=== PATIENT | female | born 1995 | race Two or more races ===

== ENCOUNTER 2024-09-23 13:45 | Inpatient (IN) | payer OTHER ==
[~2024-09-23] VITALS: Ht 154.9 cm; Wt 84.8 kg
[2024-10-06 03:04] VITALS: BP 127/82
[2024-10-06] MEDS ORDERED: ZATEAN-PN DHA1 EACH PO (03:16)
[2024-10-06] MEDS ORDERED: RINGERS SOLUTION,LACTATED 1,000 ML IV SCH (04:00)
[2024-10-06 04:05] LABS: HEMATOCRIT 42.3 % (36.0-45.00); HEMOGLOBIN 14.5 g/dL (12.0-15.00); MEAN CELL VOLUME 90.4 fL (80.00-100.00); MEAN CORPUSCULAR HEMOGLOBIN 30.9 pg (27.00-32.0); MEAN CORPUSCULAR HGB CONC 34.1 g/dl (32.0-36.0); PLATELET COUNT 263 K/uL (150-450); RED BLOOD COUNT 4.68 M/uL (4.00-6.00); RED CELL DISTRIBUTION WIDTH 13.8 % (11.5-14.5)
[2024-10-06 04:25] LABS: BILIRUBIN TOTAL 0.52 mg/dL (0.3-1.2); CALCIUM 9.6 mg/dL (8.5-10.1); CREATININE SERUM 0.58 mg/dL (0.55-1.02); GFR 122.06; GLOBULINA 3.9 G/DL (2.4-3.5); POTASSIUM 4.29 mEq/L (3.5-5.1); TOTAL PROTEIN 6.9 gm/dL (6.4-8.2)
[2024-10-06 05:19] LABS: INR < 0.93; PARTIAL THROMBOPLASTIN TIME 26.9 SECONDS (22.0-34.0); PROTHROMBIN TIME 9.3 SECONDS (9.0-11.5)
[2024-10-06 07:31] VITALS: BP 125/79
[2024-10-06] MEDS ORDERED: OXYTOCIN 20 UNITS/500ML RL PIGGYBAG IV ONE (08:31)
[2024-10-06] MEDS ORDERED: OXYTOCIN 500 ML IV SCH (09:00)
[2024-10-06 12:37] VITALS: BP 144/66
[2024-10-06] MEDS ORDERED: ERYTHROMYCIN BASE OPHT 1GM EACH TUBE OP ONE ×2 (13:20→14:45)
[2024-10-06] MEDS ORDERED: CHLORHEXIDINE GLUCONATE 120 ML BOTTLE TOP ONE ×2 (13:20→14:45)
[2024-10-06] MEDS ORDERED: OXYTOCIN 20 UNITS/1000ML RL PIGGYBAG IV ONE (13:20)
[2024-10-06] MEDS ORDERED: LIDOCAINE HCL 1% 10ML VIAL ONE (13:21)
[2024-10-06] MEDS ORDERED: OXYTOCIN 1,000 ML IV SCH (14:30)
[2024-10-06] MEDS ORDERED: LIDOCAINE HCL 1% 10ML VIAL IJ ONE (14:45)
[2024-10-06 15:11] VITALS: BP 124/98
[2024-10-06 19:11] VITALS: BP 143/73
[2024-10-07] VITALS: BP 93/60
[2024-10-07] MEDS ORDERED: OxyCODONE HCL 5 MG TABLET (ROXICODONE) PO PRN (06:00)
[2024-10-07 08:12] VITALS: BP 121/60
[2024-10-07] MEDS ORDERED: IBUprofen 400 MG TABLET PO SCH (09:00)
[2024-10-07 17:26] VITALS: BP 108/71
[2024-10-08 00:09] VITALS: BP 105/70
[2024-10-08 08:00] VITALS: BP 130/80
== END 2024-10-08 14:58 | disposition home or self-care (01) | DRG 807 ==
LOC: OB/GYN 10-04 13:45 → LDR 10-06 03:03 → OB/GYN 10-06 19:11
PROVIDERS: Obstetrics & Gynecology; ADMIT Obstetrics & Gynecology; ATTEND Obstetrics & Gynecology
PROC: 10E0XZZ Delivery of Products of Conception, External Approach (ICD-10-PCS; principal; 2024-10-06)
PROC: 0KQM0ZZ Repair Perineum Muscle, Open Approach (ICD-10-PCS; 2024-10-06)
PROC: 4A1HXCZ Monitoring of Products of Conception, Cardiac Rate, External Approach (ICD-10-PCS; 2024-10-06)
DX: O70.1 Second degree perineal laceration during delivery (principal); O69.81X0 Labor and delivery complicated by cord around neck, without compression, not applicable or unspecified; Z37.0 Single live birth; Z3A.40 40 weeks gestation of pregnancy